=== PATIENT | male | born 1985 | race Two or more races ===

== ENCOUNTER 2024-06-05 09:16 | Emergency (ER) | payer BC ==
[~2024-06-05] VITALS: Ht 182.9 cm; Wt 104.0 kg
[2024-06-05] MEDS: cefTRIAXone 1GM/50ML D5W 50 ML IV ONE (09:43)
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
[2024-06-05] MEDS: HYDROmorphone HCL 2 MG/ML VL/or syr IV ONE (09:57)
[2024-06-05] MEDS: ONDANSETRON HCL 4 MG/2 ML VIAL IV ONE (09:57)
[2024-06-05] MEDS: TETANUS-DIPTH-ACEL PERTUSSIS 0.5ML SYR Tdap IM ONE (10:04)
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
[2024-06-05] MEDS: CLINDAMYCIN 600MG IV 50 ML IV ONE (10:37)
[2024-06-05 10:46] VITALS: PULSE 98; RESP 18; O2SAT 99
[2024-06-05 10:53] VITALS: BP 135/91; PULSE 109; RESP 11; TEMP 98.6; O2SAT 97
== END 2024-06-05 11:00 | disposition short-term general hospital (02) ==
LOC: ER 09:16
DX: S61.412A Laceration without foreign body of left hand, initial encounter (principal); W34.09XA Accidental discharge from other specified firearms, initial encounter; Y93.89 Activity, other specified; Y92.89 Other specified places as the place of occurrence of the external cause; Y99.8 Other external cause status
CPT/HCPCS: 29130; 73130; 90471; 90715; 96365; 96366; 96368; 96375; 99284; J0696; J1171; J2405; J3490; J7030